=== PATIENT | female | born 1950 | race Caucasian/White ===

== ENCOUNTER → 2017-04-03 | Outpatient (CLI) | payer OTHER ==
[~2017-04-03] MED LIST: AMITIZA24 MCG PO; B-121000 MC1 PO; BUSPIRONE HCL7.5 MG PO; CALCIUM 600 +1 EA16 PO; EC-NAPROSYN500 MG PO; FISH OIL 1,0001 EAC3 PO; FLONASE ALLERG9.9 ML INH; GABAPENTIN300 MG PO; GLUCOSAMINE CH1 EAC5 PO; HAIR SKIN NAIL1 EACH PO; HYDROCHLOROTH12.5 M1 PO; LIORESAL10 MG PO; LIPITOR20 MG PO; LO-DOSE ASPIRIN81 M1 PO; NATURAL VITA400 UNI3 PO; SUPER B-50 COM1 EACH PO; VITAMIN C W/R1000 M1 PO; VITAMIN D35000 UNI1 PO
[2017-04-03 08:59] LABS: HEMATOCRIT 38.4 % (35.0-45.0); HEMOGLOBIN 12.3 gm/dL (12.0-16.0); MEAN CELL VOLUME 89.9 FL (83-96); MEAN CORPUSCULAR HEMOGLOBIN 28.8 PG (28-34); MEAN PLATELET VOLUME 9.8 FL (6.5-11.5); RED BLOOD COUNT 4.27 X10e (3.90-5.30); RED CELL DISTRIBUTION WIDTH 13.5 % (11.0-15.5); WHITE BLOOD COUNT 5.8 X10e3 (4.0-10.5)
[2017-04-03 09:37] LABS: ALBUMIN SERUM 4.1 g/dL (3.5-5.0); BILIRUBIN,TOTAL 0.8 mg/dL (0.2-2.0); BUN/CREATININE RATIO 18.75; CREATININE SERUM 0.8 mg/dL (0.6-1.4); GLOM FILT RATE Estimated 75.8 mL/min (>60); POTASSIUM 3.4 mmol/L (3.5-5.1); PROTEIN TOTAL SERUM 6.6 g/dL (6.0-8.3)
== END | disposition home or self-care (01) ==
LOC: CAMB 03-25 08:00
PROVIDERS: Specialist
DX: Z01.812 Encounter for preprocedural laboratory examination (principal); K80.20 Calculus of gallbladder without cholecystitis without obstruction
CPT/HCPCS: 36415; 80053; 85027

== ENCOUNTER → 2017-04-10 | Day surgery (SDC) | payer OTHER ==
--- NOTE | ~2017-04-10 | OR ---
Unit #: [id number] #: [id number] Patient: HEATHER MOULTON [id number] [address] [place], [place] [address] [id number] O MR#: [id number] NAME: HEATHER MOULTON ROOM: Date of Procedure: 04/10/2017 Admission Date: 04/10/2017 Surgeon: Kirk Rivas M.D. : 1950 Attending Physician: Kirk Rivas M.D. Primary Care Physician: Bea Bertrand M.D. OPERATIVE REPORT PREOPERATIVE DIAGNOSIS Chronic acalculous cholecystitis. POSTOPERATIVE DIAGNOSIS Chronic acalculous cholecystitis. PROCEDURE PERFORMED Laparoscopic cholecystectomy. ANESTHESIA General endotracheal anesthesia. ESTIMATED BLOOD LOSS Less than 20 mL. INDICATIONS FOR PROCEDURE A 66-year-old female with chronic postprandial nausea and right upper quadrant pain. Preoperative evaluation HIDA scan showed an ejection fraction of 11%. DESCRIPTION OF PROCEDURE The patient was admitted to [facility], positively identified, and transported to the operating room, and after induction of general endotracheal anesthesia, she was prepped and draped in usual sterile fashion and received IV antibiotics per SCIP protocol. A 1 cm infraumbilical incision was made. We dissected down and opened the fascia under direct vision, placed stay sutures. I grasped and elevated the posterior fascia and peritoneum and opened it with Metzenbaum scissors and entered into the peritoneal cavity. Kia trocar was placed. Pneumoperitoneum was created. Then, laparoscope was introduced into peritoneal cavity. Under direct vision. The epigastric and lateral ports were placed. Gallbladder was grasped and elevated. Adhesions were taken down with sharp and cautery dissection until the infundibulum could be identified and retracted laterally. [place] of [place] was dissected out clearly identifying the cystic duct, gallbladder, and cystic duct-common duct junction. A single clip was placed in the cystic duct centered to gallbladder. Three clips were placed distally and the cystic duct was sharply divided. Posteriorly, the cystic artery was doubly clipped proximally and distally and divided. I then dissected the gallbladder liver bed using cautery dissection and once it was freed up from its hepatic attachments, it was brought out through the epigastric port. I recreated the pneumoperitoneum. A little bleeding from the liver edge Unit #: [id number] #: [id number] Patient: HEATHER MOULTON where the adhesions were taken down and this was covered with Surgicel, which effected hemostasis. There was good hemostasis. The clips were well positioned. The epigastric fascial defect was closed with the neoClose device and the closure was airtight. I then reduced the pneumoperitoneum and removed laparoscope and trocars. The Kia trocar site was closed with 0 Vicryl interrupted sutures. 0.5% Marcaine with epinephrine was infiltrated into each trocar site. Skin was closed with 4-0 Monocryl subcuticular closure and Dermabond skin adhesive. Sponges and needle counts were correct x3. The patient tolerated the procedure well and transported to recovery in stable condition. Findings and postoperative instructions were discussed with her daughter. Dictated by... Dionne Fry/danita TD: 04/11/2017 01:19 JOB #: [id number] OPERATIVE REPORT Page 1 of 1 X Kirk Rivas MD PROCEDURE OPERATIVE NOTE
== END | disposition home or self-care (01) ==
LOC: CSUR 04-03 07:30
DX: K81.1 Chronic cholecystitis (principal); K21.9 Gastro-esophageal reflux disease without esophagitis; J44.9 Chronic obstructive pulmonary disease, unspecified; F41.9 Anxiety disorder, unspecified; M41.9 Scoliosis, unspecified; Z88.5 Allergy status to narcotic agent; Z88.0 Allergy status to penicillin
CPT/HCPCS: 88304; J0131; J0330; J1100; J1885; J2250; J2310; J2405; J2765; J3010; J3370